=== PATIENT | male | born 1960 | race African-American/Black ===

== ENCOUNTER → 2019-05-15 | Outpatient (CLI) | payer MEDICARE, MEDICAID ==
--- NOTE | 2019-05-15 12:22 | RAD ---
Examination: VENOUS LOWER EXTREMITY LEFT History: Left leg pain and swelling Comparison/Correlation: None FINDINGS: Left lower extremity duplex venous ultrasound exam was performed. Grayscale, color Doppler, and spectral Doppler imaging was performed. Compression and augmentation was performed. The left common femoral vein, superficial femoral vein, popliteal vein, and greater saphenous vein are normal with no evidence of deep venous thrombus. Normal compressibility and augmentation is evident. Because of calf veins are unremarkable. IMPRESSION: Normal left lower extremity duplex ultrasound exam. No evidence of deep venous thrombus involving the left lower extremity. Electronically signed by: Carter Green MD (05/15/2019 12:19 PM) [facility]
== END | disposition home or self-care (01) ==
LOC: US 11:06
PROVIDERS: ATTEND Family Medicine
DX: M79.605 Pain in left leg (principal); M79.89 Other specified soft tissue disorders
CPT/HCPCS: 93971

== ENCOUNTER → 2019-07-24 | Outpatient (CLI) | payer OTHER ==
--- NOTE | 2019-07-24 14:59 | RAD ---
2 views the right ankle without comparison for chronic right ankle pain. FINDINGS: There is no fracture, dislocation, or acute osseous abnormality identified. Ankle mortise is symmetric. There is a dystrophic calcification or exostosis overlying the interosseous membrane just above the ankle. Doubtful clinical significance. Small calcaneal bone spur is noted. IMPRESSION: 1. No acute osseous abnormality. Electronically signed by: Jermaine Engel MD (07/24/2019 2:56 PM) [id number]
--- NOTE | 2019-07-24 17:16 | RAD ---
Two view bilateral knee radiographs 07/24/2019 CLINICAL HISTORY: Chronic bilateral knee pain. AP and lateral digital radiographs of both knees were obtained. No fracture or dislocation of either knee is seen. Moderate to severe degenerative changes are seen involving all 3 compartments of both knees, left greater than right. These particularly involve the medial and patellofemoral compartment of both knees. These consist of joint compartment narrowing, subchondral sclerosis and osteophyte formation. Subchondral cyst formation surrounds the medial compartment of the left knee. No fracture or dislocation is seen. IMPRESSION: Moderate to severe degenerative changes are seen involving both knees, left greater than right. No acute osseous abnormality is seen. Electronically signed by: Deep Beltran MD (07/24/2019 5:14 PM) [id number]
== END | disposition home or self-care (01) ==
LOC: RAD 09:27
PROVIDERS: ATTEND Family Medicine
DX: M17.0 Bilateral primary osteoarthritis of knee (principal); M77.31 Calcaneal spur, right foot; M25.862 Other specified joint disorders, left knee
CPT/HCPCS: 73560; 73600

== ENCOUNTER → 2020-01-26 | Outpatient (CLI) | payer MEDICARE, MEDICAID ==
[~2020-01-26] MED LIST: GADOTERATE 7.5 MMOL/15ML VIAL. IVP ONE
--- NOTE | 2020-01-26 11:35 | RAD ---
ORBIT FACE NECK WO CONTRAST Date: 01/26/2020 9:00 AM Indication: Reason: THYROID NODULE / Spl. Instructions: PT CLAUSTROPHOBIC, NO CONTRAST GIVEN, NO COR T2 FS OBTAINED / History: Comparison: None. Technique: Multiplanar multisequence MRI of the neck was performed. Patient was claustrophobic and unable to complete the examination. No postcontrast imaging was obtained. Findings: Along the ventral surface of the thyroid cartilage on the left and extending to the laryngeal prominence is a T1/T2 hypointense lesion measuring 3.1 x 1.3 x 3.9 cm (AP by TV by CC). This is superior to the thyroid isthmus, and may be separate from the thyroid gland. No definite erosion or destruction of the cartilage is seen. No cervical lymphadenopathy. Incompletely characterized cervical spondylosis. Normal vertebral and carotid artery flow voids. IMPRESSION: Patient was unable to complete the examination due to claustrophobia. No postcontrast imaging was obtained. Indeterminate 3.9 cm lesion in the prelaryngeal soft tissues which appears to be separate from the thyroid gland. Considerations would include ectopic thyroid tissue, abnormally enlarged prelaryngeal lymph node, or neoplasm. Consider tissue sampling. Electronically signed by: Junior Gutierrez MD (01/26/2020 11:32 AM) [id number]
== END | disposition home or self-care (01) ==
LOC: MRI 08:59
PROVIDERS: ATTEND Specialist
DX: E04.1 Nontoxic single thyroid nodule (principal); F40.240 Claustrophobia
CPT/HCPCS: 70540

== ENCOUNTER 2020-06-02 05:46 | Emergency (ER) | payer MEDICARE, MEDICAID ==
[~2020-06-02] VITALS: Ht 198.1 cm; Wt 129.0 kg
[2020-06-02 06:10] VITALS: BP 167/103
--- NOTE | 2020-06-02 07:05 | RAD ---
HIP RIGHT 2 VIEW DATE: 06/02/2020 12:00 AM INDICATION: Reason: hip pain NO KNOWN INJURY / Spl. Instructions: / History: COMPARISON: None. FINDINGS: Bones: There is no evidence of acute fracture or dislocation. Joints: Severe degenerative changes of the hip. Miscellaneous: None. IMPRESSION: 1. No acute osseous abnormality. 2. Severe right hip osteoarthritis. Electronically signed by: Junior Gutierrez MD (06/02/2020 7:02 AM) [id number]
[2020-06-02] MEDS ORDERED: PRED50TA PO (07:07)
[2020-06-02] MEDS ORDERED: LIDO700A21 TP (07:07)
[2020-06-02] MEDS ORDERED: MELO15TA23 PO (07:07)
--- NOTE | 2020-06-02 07:07 | ED.ADGEN ---
Past Medical History Past Medical History: No Pertinent History Past Surgical History: No Surgical History Smoking Status: Never Smoker Alcohol Use: Occasionally General Adult EDM: Chief Complaint: LOWER EXT PAIN HPI: HPI: Patient 60-year-old male who presents to the emergency room complaining of right hip pain. Patient states that he has chronic issues with his legs due to long years of basketball. He has oxycodone however this makes him nauseous and does not seem to help. He has not seen orthopedic surgeon for this. Pain started 2 days ago. He has been able to walk but it is painful. He denies any injuries. He denies any swelling in the leg. Review of Systems: Review of Systems: Complete ROS is negative unless otherwise documented in HPI Current Medications: Current Medications Medications (Trade) Dose Ordered Sig/Carmen Start Time Stop Time Status Last Admin Dose Admin Dexamethasone Sodium Phosphate (Decadron) 10 mg 1X ONCE 06/02/20 07:15 06/02/20 07:16 DC 06/02/20 07:16 10 MG Ketorolac Tromethamine (Toradol Im) 60 mg 1X ONCE 06/02/20 07:15 06/02/20 07:16 DC 06/02/20 07:16 60 MG Allergies: Allergies: Allergies Coded Allergies Type Severity Reaction Last Updated Verified No Known Drug Allergies 01/26/20 No Physical Exam: PE: General: Awake, alert, NAD. Well Nourished, well hydrated. Cooperative HEENT: Atraumatic, EOMI, PERRL, airway patent, moist oral mucosa Neck: Supple, trachea midline Respiratory: CTA bilaterally, normal effort, no wheezing/crackles CV: RRR, no murmur, cap refill <2 GI: Soft, nondistended, nontender, no masses MSK: No obvious deformities, right hip tenderness without swelling, normal range of motion, normal gait Skin: Warm, dry, intact Neuro: A&O x3, speech NL, sensory and motor grossly intact, no focal deficits Psych: Normal affect, normal mood, not suicidal or homicidal Current Patient Data: Vital Signs: Vital Signs Date Time Temp Pulse Resp B/P (MAP) Pulse Ox O2 Delivery O2 Flow Rate FiO2 06/02/20 06:10 98.3 84 167/103 (124) 98 Room Air 98.3 EKG: EKG: [] Heart Score: Risk Factors: Risk Factors: DM, Current or recent (<one month) smoker, HTN, HLP, family history of CAD, obesity. Risk Scores: Score 0 - 3: 2.5% MACE over next 6 weeks - Discharge Home Score 4 - 6: 20.3% MACE over next 6 weeks - Admit for Clinical Observation Score 7 - 10: 72.7% MACE over next 6 weeks - Early Invasive Strategies Radiology/Procedures: Radiology/Procedures: [] Course & Med Decision Making: Course & Med Decision Making Pertinent Labs and Imaging studies reviewed. (See chart for details) Patient is 60-year-old male who presents to the emergency room after developing right hip pain. Patient is overall well-appearing. He has a normal gait. He has normal range of motion. X-ray shows osteoarthritis. We will treat patient symptomatically and refer him to orthopedic surgery patient's test results and vitals while in the ED were fully reviewed and discussed with the patient. Patient is stable and at this time does not need admission to the hospital. We have discussed strict return precautions and the importance of following up with their Primary Care Physician. Patient stated understanding and was given an opportunity to ask any questions. Patient is in agreement with plan. Dragon Disclaimer: Dragon Disclaimer: This electronic medical record was generated, in whole or in part, using a voice recognition dictation system. Departure Departure Impression: Primary Impression: Hip arthritis Disposition: 01 DC HOME SELF CARE/HOMELESS Condition: STABLE Referrals: SMOOTH AMANDA MD (PCP) RAFAEL LIM MD Patient Instructions: Hip Pain Scripts Meloxicam (MELOXICAM) 15 Mg Tablet 1 TAB PO DAILY for 30 Days, #30 TAB 0 Refills Prov: ADRIANA TRUJILLO MD 06/02/20 Prednisone (PREDNISONE) 50 Mg Tablet 1 TAB PO DAILY, #5 TAB Prov: ADRIANA TRUJILLO MD 06/02/20 Lidocaine (Lidocaine PATCH ) 1 Each Adh..patch 1 EACH TP DAILY for FOR LOCAL PAIN for 10 Days, #10 PATCH REMOVE AFTER 12 HOURS Prov: ADRIANA TRUJILLO MD 06/02/20 ADRIANA TRUJILLO MD Jun 02, 2020 07:07
[2020-06-02] MEDS ORDERED: DEXAMETHASONE SOD PHOS 20 MG/5 ML VIAL. IM ONE (07:15)
[2020-06-02] MEDS ORDERED: KETOROLAC 60 MG/2 ML VIAL. IM ONE (07:15)
== END 2020-06-02 07:24 | disposition home or self-care (01) ==
LOC: ER 05:46
DX: M16.11 Unilateral primary osteoarthritis, right hip (principal)
CPT/HCPCS: 73502; 96372; 99284; J1100; J1885